=== PATIENT | female | born 1990 | race Caucasian/White ===

== ENCOUNTER 2017-01-02 10:48 | Emergency (ER) | payer BC, MEDICAID ==
--- NOTE | 2017-01-02 11:35 | ERNOTE ---
Head Injury HPI - Narrative Date of Service: 01/02/17 - General Injury to: head Time Seen by Provider: 01/02/17 11:15 Source: patient, RN notes reviewed Exam Limitations: no limitations - Immun/Allergies/Home Medications Immunization: IMMUNIZATION HX History of Influenza Vaccine Yes Hx Pneumococcal Vaccination No Allergies/Adverse Reactions: Allergies Allergy/AdvReac Type Severity Reaction Status Date / Time No Known Allergies Allergy Verified 01/02/17 10:56 Home Medications: HOME MEDICATIONS Albuterol Sulfate [Albuterol Sulfate Hfa] 8.5 gm IH Q4H PRN 10/03/13 [Last Taken Unknown] - History of Present Illness Narrative: 26 y/o female ambulatory to the ED for injuries due to a fall down her stairs. She reports that the steps were wet and slick. She slipped and fell, striking the back of her head. Her son witness the fall. She reports that it happened so fast that she is unsure if she lost consciousness, but if she did it would have been only seconds. She went to work afterwards and began having a headache. She took 4 Aleve. She then began having dizziness and nausea, but no vomiting. She was sent home from work. She also report diffuse pain in her back due to the fall. Occurred: this morning Location Occurred: home Severity: mild Head Injury Location: occipital Method of Injury: Reports: fell Reason for Fall: Reports: slipped Loss of Consciousness: Reports: no loss of consciousness, remembers event, remembers coming to hospital Associated Symptoms: Reports: malaise, nausea. Denies: chest pain, cough, shortness of breath, fever/chills, neck pain, weakness, vomiting Review of Systems - Review of Systems Constitutional: Absent: recent illness, fever, malaise EYE: Absent: eye pain, vision changes ENT: Absent: ear discharge, nasal drainage, other - dental injury Respiratory: Absent: shortness of breath, cough Cardiology: Present: no symptoms reported Gastrointestinal/Abdominal: Present: nausea. Absent: vomiting, abdominal pain Genitourinary: Present: no symptoms reported Musculoskeletal: Present: back pain, muscle pain. Absent: joint pain, joint swelling Skin: Absent: lesions, lumps, change in color Neurological: Present: headache, dizziness/light-headedness. Absent: weakness, numbness, tingling Endocrine: Present: no symptoms reported Hematologic/Lymphatic: Absent: easy bruising, easy bleeding Psych: Present: no symptoms reported - Patient's Past Medical History Patient History - Medical: No pertinent hx Patient History - Cardiac/Respiratory: Asthma Patient History - Cancer: No Hx of Cancer Patient History - Surgical Procedures: Tubal Ligation Patient History - Other: None - Social History Living Situations: home Psych History: No pertinent hx Smoking Status: Current every day smoker - Immunizations Hx Pneumococcal Vaccination: No History of Influenza Vaccine: Yes Physical Exam - Physical Exam General Appearance: Present: alert, no apparent distress, thin, other - disheveled Eye Exam: Normal inspection: bilateral, PERRL: bilateral, EOMI: bilateral Ears, Nose, Throat: Present: normal ENT inspection Neck: Present: supple, full range of motion, tender lateral. Absent: tender posterior midline Respiratory: Present: no respiratory distress, normal breath sounds, no accessory muscle use, lungs clear Cardiovascular/Chest: Present: regular rate, rhythm, no murmur Extremity Exam: Present: normal inspection, normal range of motion Neurological Exam: Present: alert, oriented, normal mood/affect, no motor/ sensory deficits Skin Exam: Present: normal color, warm/dry ED Progress - Vital Signs Patient's Vital Signs:: I have reviewed the patient's vital signs. Vital Signs: Vital Signs 01/02/17 10:51 Temperature 36.3 C L Pulse Rate 82 Respiratory 12 Rate Blood Pressure 122/89 O2 Sat by Pulse 100 Oximetry - Progress/Reassessment Chief Complaint: General Assessment Progress:: Unchanged Departure Clinical Impression: Concussion without loss of consciousness Qualifiers: Encounter type: initial encounter Qualified Code(s): S06.0X0A - Concussion without loss of consciousness, initial encounter Fall down stairs Qualifiers: Encounter type: initial encounter Qualified Code(s): W10.8XXA - Fall (on) (from ) other stairs and steps, initial encounter - Departure Disposition: Home self-care Condition: Good Instructions: Form - Excuse from Work, School, or Physical Activity, Head Injury, Adult, [id number] Additional Instructions: Ibuprofen for pain - 600 mg (3 tablets) every 6 hours with food as needed for pain Can also take Tylenol Ice to sore areas Return for vomiting, worsening headache, or other concerning symptoms
[2017-01-02 11:39] VITALS: BP 132/81
== END 2017-01-02 11:34 | disposition home or self-care (01) ==
LOC: ER 10:48
DX: S06.0X0A Concussion without loss of consciousness, initial encounter (principal); F17.210 Nicotine dependence, cigarettes, uncomplicated; W10.8XXA Fall (on) (from) other stairs and steps, initial encounter; Y92.009 Unspecified place in unspecified non-institutional (private) residence as the place of occurrence of the external cause; J45.909 Unspecified asthma, uncomplicated